=== PATIENT | male | born 1975 | race Caucasian/White ===

== ENCOUNTER 2018-09-02 21:30 | Emergency (ER) | payer OTHER ==
[~2018-09-02] VITALS: Ht 177.8 cm; Wt 70.3 kg
[2018-09-03] MEDS ORDERED: ONDANSETRON HCL4 M2 PO (00:13)
[2018-09-03 00:40] VITALS: BP 114/50
== END 2018-09-03 00:41 | disposition home or self-care (01) ==
LOC: ER 21:30
DX: R42 Dizziness and giddiness (principal); R11.2 Nausea with vomiting, unspecified; E78.5 Hyperlipidemia, unspecified

== ENCOUNTER 2018-09-28 22:54 | Emergency (ER) | payer OTHER ==
[~2018-09-28] VITALS: Ht 177.8 cm; Wt 70.3 kg
[~2018-09-28 22:54] MED LIST: ONDANSETRON HCL4 M2 PO
[2018-09-28 23:18] LABS: ABSOLUTE NEUTROPHILS 4.3 thou/uL (1.4-8.2); BASOPHILS 0.6 % (0.0-2.0); EOSINOPHILS 0.2 % (0.0-3.0); HEMATOCRIT 43.7 % (42.0-52.0); HEMOGLOBIN 15.1 gm/dL (14.0-18.0); LYMPHOCYTES 13.7 % (24.0-44.0); MCH 30.9 pg (26.0-34.0); MCHC 34.5 g/dL (28.0-37.0); MCV 89.5 fL (80.0-100.0); MONOCYTES 5.5 % (1.0-8.0); PLATELET COUNT 191 thou/uL (150-400); RBC 4.88 mil/uL (4.50-6.00); WBC 5.4 thou/uL (4.0-11.0)
[2018-09-28 23:28] LABS: CREATININE 1.5 mg/dL (0.7-1.3); POTASSIUM 3.4 mmol/L (3.5-5.1)
[2018-09-28 23:34] LABS: ALBUMIN 3.5 g/dL (3.4-5.0); TOTAL BILIRUBIN 0.8 mg/dL (<0.1-1.0); TOTAL PROTEIN 6.4 g/dL (6.4-8.2)
[2018-09-29 02:58] LABS: URINE BILIRUBIN NEGATIVE (Negative); URINE BLOOD NEGATIVE (Negative); URINE CLARITY CLEAR; URINE COLOR YELLOW; URINE GLUCOSE-RANDOM* NEGATIVE (Negative); URINE KETONES 1+ (Negative); URINE LEUKOCYTES NEGATIVE (Negative); URINE NITRITE NEGATIVE (Negative); URINE PROTEIN (DIPSTICK) NEGATIVE (Negative); URINE SPECIFIC GRAVITY 1.015 (1.005-1.035); URINE UROBILINOGEN 0.2 E.U./dl (0.2-1.0)
[2018-09-29] MEDS ORDERED: ZOFRAN ODT4 MG PO (04:10)
[2018-09-29 04:47] VITALS: BP 122/71
== END 2018-09-29 04:48 | disposition home or self-care (01) ==
LOC: ER 22:54
PROVIDERS: Emergency Medicine
DX: K52.9 Noninfective gastroenteritis and colitis, unspecified (principal); E86.0 Dehydration; E78.5 Hyperlipidemia, unspecified; Z88.0 Allergy status to penicillin; Z88.1 Allergy status to other antibiotic agents

== ENCOUNTER 2019-08-13 19:21 | Emergency (ER) | payer OTHER ==
[~2019-08-13] VITALS: Ht 177.8 cm; Wt 74.8 kg
[~2019-08-13 19:21] MED LIST changes: +ZOFRAN ODT4 MG PO
[2019-08-13 20:15] VITALS: BP 138/84
== END 2019-08-13 20:15 | disposition home or self-care (01) ==
LOC: ER 19:21
DX: S92.012D Displaced fracture of body of left calcaneus, subsequent encounter for fracture with routine healing (principal); E78.5 Hyperlipidemia, unspecified; Z98.890 Other specified postprocedural states; X58.XXXD Exposure to other specified factors, subsequent encounter

== ENCOUNTER 2019-08-19 22:11 | Emergency (ER) | payer OTHER ==
[~2019-08-19] VITALS: Ht 177.8 cm; Wt 74.8 kg
[2019-08-20] MEDS ORDERED: NAPROSYN500 MG PO (01:39)
[2019-08-20] MEDS ORDERED: NORCO 5-325 TA1 EAC1 PO (01:39)
[2019-08-20 01:59] VITALS: BP 128/93
== END 2019-08-20 02:00 | disposition home or self-care (01) ==
LOC: ER 22:11
DX: S92.001A Unspecified fracture of right calcaneus, initial encounter for closed fracture (principal); E78.5 Hyperlipidemia, unspecified; Z98.890 Other specified postprocedural states; Z88.1 Allergy status to other antibiotic agents; Z88.0 Allergy status to penicillin; W01.0XXA Fall on same level from slipping, tripping and stumbling without subsequent striking against object, initial encounter; Y92.89 Other specified places as the place of occurrence of the external cause; Y93.89 Activity, other specified; Y99.0 Civilian activity done for income or pay